=== PATIENT | female | born 1990 | race African-American/Black ===

== ENCOUNTER 2024-10-08 06:00 | Emergency (ER) | payer MEDICAID ==
[~2024-10-08] VITALS: Ht 167.6 cm; Wt 63.0 kg
[2024-10-08 06:36] VITALS: BP 111/72; PULSE 91; RESP 16; TEMP 98.2; O2SAT 100
== END 2024-10-08 09:47 | disposition home or self-care (01) ==
LOC: ER 06:00
DX: R05.9 Cough, unspecified (principal)
CPT/HCPCS: 71045; 99283

== ENCOUNTER 2024-12-06 12:02 | Emergency (ER) | payer OTHER ==
[~2024-12-06] VITALS: Ht 167.6 cm; Wt 54.4 kg
[2024-12-06 12:04] VITALS: PULSE 96; RESP 14; O2SAT 100
[2024-12-06 12:18] VITALS: BP 117/63; TEMP 37.1; O2SAT 100
[2024-12-06] MEDS ORDERED: ACET-2708 MT (15:59)
== END 2024-12-06 16:47 | disposition home or self-care (01) ==
LOC: ER 12:02
DX: M72.2 Plantar fascial fibromatosis (principal)
CPT/HCPCS: 73630; 99283